=== PATIENT | male | born 1995 | race African-American/Black ===

== ENCOUNTER 2019-11-24 11:27 | Emergency (ER) | payer OTHER ==
[~2019-11-24] VITALS: Ht 167.6 cm; Wt 54.4 kg
[2019-11-24 12:17] VITALS: BP 112/62; TEMP 98.1
== END 2019-11-24 12:17 | disposition home or self-care (01) ==
LOC: ED 11:27
DX: H60.8X3 Other otitis externa, bilateral (principal)
CPT/HCPCS: 99282